=== PATIENT | male | born 1965 | race Caucasian/White ===

== ENCOUNTER 2018-12-09 08:16 | Outpatient (CLI) | payer BC, OTHER ==
[~2018-12-09 08:16] MED LIST: ASPI-496 PO
== END 2018-12-09 23:59 | disposition home or self-care (01) ==
LOC: CARD 08:16
PROVIDERS: ATTEND General Practice
DX: R07.9 Chest pain, unspecified (principal); I10 Essential (primary) hypertension
CPT/HCPCS: 93017; 93350

== ENCOUNTER → 2019-02-17 | Outpatient (CLI) | payer OTHER | END | disposition home or self-care (01) | LOC: CVU 09:07 | PROVIDERS: ATTEND General Practice | DX: I35.0 Nonrheumatic aortic (valve) stenosis (principal); I10 Essential (primary) hypertension | CPT/HCPCS: 93306 ==